=== PATIENT | male | born 1955 | race Caucasian/White ===

== ENCOUNTER → 2016-05-14 | Outpatient (CLI) | payer OTHER ==
--- NOTE | 2016-05-14 16:46 | REP ---
MRI LUMBAR SPINE WITHOUT CONTRAST: HISTORY: Lumbago. Decreased signal intensity on T2-weighted images is present in the lumbar intervertebral discs. The discs are decreased in height. These findings are consistent with disc degeneration. A diffuse disc bulge is present at the L1-2 level. There is minimal compression of the thecal sac. The L1 nerves exit the neural foramina without compression. A diffuse disc bulge with associated osteophyte formation is present at the L2-3 level. There is minimal compression of the thecal sac. There is hypertrophy of the posterior articulating facets. There is compression of the left L2 nerve in the neural foramen. The right L2 nerve exits the neural foramen without compression. A diffuse disc bulge with associated osteophyte formation is present at the L3-4 level. There is minimal compression of the thecal sac. There is hypertrophy of the posterior articulating facets. There is compression of the L3 nerves in the neural foramina. A diffuse disc bulge is present at the L4-5 level. There is minimal compression of the thecal sac. There is hypertrophy of the posterior articulating facets. There is compression of the right L4 nerve in the neural foramen. The left L4 nerve exits the neural foramen without compression. A diffuse disc bulge is present at the L5-S1 level. This abuts the thecal sac. There is hypertrophy of the posterior articulating facets. There is compression of the L5 nerves and the neural foramina. The conus medullaris is normal in appearance terminating at the level of the L1 intervertebral disc. Increased signal intensity on T2-weighted images is present in the endplates of the L2 through L5 vertebral bodies. This represents degenerative change. There is an old compression fracture at the L1 vertebral body with minimal height loss. IMPRESSION: 1. Diffuse disc bulges at the L1-2 and L4-5 levels with minimal thecal sac compression. There is compression of the right L4 nerve in the neural foramen. 2. Diffuse disc bulge with associated osteophyte formation at the L2-3 and L3-4 levels with minimal thecal sac compression. There is compression of the L3 and left L2 nerves in the neural foramina. 3. Diffuse disc bulge at the L5-S1 level. This abuts the thecal sac. There is compression of the L5 nerves in the neural foramina. Signed by Maurizio Cartagena MD 05/14/2016 04:53 P
== END ==
LOC: M RAD 15:29
PROVIDERS: ATTEND Family Medicine
DX: M54.41 Lumbago with sciatica, right side (principal); M51.26 Other intervertebral disc displacement, lumbar region

== ENCOUNTER → 2016-08-25 | Outpatient (REF) | payer OTHER | LOC: M SFHCPLAZ 15:38 | PROVIDERS: ATTEND Family Medicine | DX: T14.8 Other injury of unspecified body region (principal) ==

== ENCOUNTER 2019-02-05 13:16 | Emergency (ER) | payer OTHER ==
[~2019-02-05] VITALS: Ht 200.7 cm; Wt 127.3 kg
[2019-02-05 15:08] LABS: BASO # 0.1 10^3/uL (0.0-0.2); BASO % 0.5 % (0.0-1.0); EOS # 0.1 10^3/uL (0.0-0.5); EOS % 0.7 % (0.0-3.0); HEMATOCRIT 45.1 % (42.0-52.0); HEMOGLOBIN 15.3 g/dl (13.5-17.5); LYMPH # 1.8 10^3/uL (1.5-5.0); LYMPH % 16.6 % (24.0-44.0); MEAN CORPUSCULAR HEMOGLOBIN 28.6 pg (27.0-33.0); MEAN CORPUSCULAR HGB CONC 33.9 g/dl (32.0-36.5); MEAN CORPUSCULAR VOLUME 84.3 fl (80.0-96.0); MONO # 0.9 10^3/uL (0.0-0.8); MONO % 8.3 % (0.0-5.0); NEUTROPHILS # 7.9 10^3/uL (1.5-8.5); NEUTROPHILS % 73.6 % (36.0-66.0); PLATELET COUNT, AUTOMATED 267 10^3/uL (150-450); RED BLOOD COUNT 5.35 10^6/uL (4.30-6.10); WHITE BLOOD COUNT 10.7 10^3/uL (4.0-10.0)
[2019-02-05] MEDS ORDERED: FLOM0.4C39 PO (15:17)
--- NOTE | 2019-02-05 15:17 | REP ---
Two-view chest: 02/05/2019. Indication: Hypertension. Comparison: None. Findings: The lungs are clear. There is no pleural effusion or pneumothorax. The cardiomediastinal silhouette is unremarkable. Impression: Clear lungs. Electronically Signed by Silvano Avila DO 02/05/2019 03:09 P
[2019-02-05 15:35] LABS: CK-MB VALUE MASS < 1.0 NG/ML (<3.6); CPK CREATINE PHOSPHOKINASE 59 U/L (39-308); MB/CK RELATIVE INDEX 1.69 (< OR =4); TROPONIN I < 0.02 NG/ML (< 0.10)
--- NOTE | 2019-02-05 16:39 | ECGEPIP ---
[facility] - ED Test Date: 2019-02-05 Pat Name: DIMPLE STRATTON Department: Room: - Gender: Male [employer] Consultant: CAROLA : 1955 Requested By: DWAIN Marquez PA-C Order Number: [id number] Reading MD: Shanti Mccullough Measurements Intervals [place] Rate: 54 P: 60 TX: 174 QRS: -47 QRSD: 113 T: -46 QT: 429 QTc: 409 Interpretive Statements SINUS BRADYCARDIA WITH SINUS ARRHYTHMIA MARKED LEFT AXIS DEVIATION POSSIBLE SEPTAL MYOCARDIAL INFARCTION, OF INDETERMINATE AGE NO PRIOR Electronically Signed on 02-05-2019 16:39:12 EST by Shanti Mccullough
[2019-02-05 16:56] VITALS: BP 164/92
== END 2019-02-05 16:58 | disposition home or self-care (01) ==
LOC: M ED 13:16
DX: R33.9 Retention of urine, unspecified (principal); R10.30 Lower abdominal pain, unspecified; R03.0 Elevated blood-pressure reading, without diagnosis of hypertension; R00.1 Bradycardia, unspecified; M54.9 Dorsalgia, unspecified; F17.210 Nicotine dependence, cigarettes, uncomplicated

== ENCOUNTER 2019-02-10 20:17 | Emergency (ER) | payer OTHER ==
[~2019-02-10] VITALS: Ht 200.7 cm; Wt 119.1 kg
[~2019-02-10 20:17] MED LIST: FLOM0.4C39 PO
[2019-02-10] MEDS ORDERED: LIDOCAINE 2% 5ML JELLY UROJET TOP ONE (20:45)
[2019-02-10] MEDS ORDERED: HYDR-3713 PO (21:32)
[2019-02-10 21:50] VITALS: BP 175/92
== END 2019-02-10 21:52 | disposition home or self-care (01) ==
LOC: M ED 20:17
DX: R33.9 Retention of urine, unspecified (principal); Z79.899 Other long term (current) drug therapy

== ENCOUNTER → 2019-02-16 | Outpatient (CLI) | payer OTHER ==
[~2019-02-16] MED LIST changes: +HYDR-3713 PO
== END ==
LOC: M LAB 14:32
PROVIDERS: ATTEND Nurse Practitioner Family
DX: Z12.5 Encounter for screening for malignant neoplasm of prostate (principal)

== ENCOUNTER → 2019-02-22 | Outpatient (REF) | payer OTHER | LOC: M SMT 17:12 | PROVIDERS: ATTEND Nurse Practitioner Family | DX: R97.20 Elevated prostate specific antigen [PSA] (principal) ==

== ENCOUNTER → 2019-04-08 | Outpatient (CLI) | payer OTHER ==
[2019-04-11 00:07] LABS: PSA TOTAL 69.5 ng/mL (0.0-4.0)
== END ==
LOC: M LAB 12:39
PROVIDERS: ATTEND Nurse Practitioner Family
DX: Z12.5 Encounter for screening for malignant neoplasm of prostate (principal)

== ENCOUNTER → 2019-04-26 | Outpatient (CLI) | payer OTHER ==
[~2019-04-26] MED LIST changes: +PROHANCE 279.3MG/ML 15ML VIAL (A9576) As Ordered ONE; +PROHANCE 279.3MG/ML 5ML VIAL (A9576) As Ordered ONE
--- NOTE | 2019-04-26 13:46 | REP ---
MULTI PARAMETRIC PROSTATE MRI WITHOUT AND WITH IV GADOLINIUM: HISTORY: Elevated PSA. Urinary retention. Urinary tract infection COMPARISONS: No comparison imaging. TECHNIQUE: Using a phased array surface coil, small field of view imaging was acquired using T2-weighted scans in the axial, coronal, and sagittal imaging planes. Small field of view diffusion-weighted sequences are acquired. Small field of view axial T1-weighted scans are acquired dynamically before and after the intravenous administration of 20 mL of ProHance. Imaging is reviewed on the [employer] computer aided detection system. PROSTATE MRI FINDINGS: There is no evidence of skeletal metastatic disease. There are two suspicious lymph nodes, one in the internal iliac chain measuring 10 x 14 mm. The other is in the external iliac chain on the right measuring 19 x 14 mm. There is evidence of extraprostatic malignancy in the para-prostatic soft tissues on the left where there is a 17 x 12 x 21 mm extra prostatic low T2 signal intensity lesion. There is also evidence of extraprostatic involvement of the seminal vesicles bilaterally. This is a little more prominent on the left than the right. The fat plane between the posterior margin of the prostate and the rectum is effaced to the left of midline. Prostate dimensions are 5.8 x 5.2 x 4.8 cm. Calculated volume is 74.01 mL. There is a large infiltrative low T2 signal intensity enhancing mass involving the left half of the prostate which extends beyond the lateral capsular margin and bulges the posterior capsular margin. On diffusion weighted scans, it shows intermediate areas of restricted diffusion. There is a type 3 enhancement curve. Clinically significant cancer is highly likely here. This measures 19.9 mL and estimated volume with diameters of 4.2 x 1.7 x 3.8 cm. It is seen in a large area of the left side of the gland including the anterolateral peripheral zone at the left base, the posterior peripheral zone at the left base, the left base posterior transition zone, and left mid transition zone, and the left mid posterior peripheral zone. There is a left lateral extraprostatic suspicious nodule with somewhat spiculated margins, discrete homogeneous low signal intensity on T2-weighted scans with focal areas of reduced ADC and a type 3 enhancement curve. Significant disease is highly likely to be present here as well. 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 Two regions of interest are drawn and submitted to the [employer] system. Electronically Signed by Len Russell MD 04/26/2019 04:57 P
== END ==
LOC: M RAD 10:34
PROVIDERS: ATTEND Specialist
DX: R97.20 Elevated prostate specific antigen [PSA] (principal); N39.0 Urinary tract infection, site not specified
CPT/HCPCS: 72197; A9576

== ENCOUNTER → 2019-05-01 | Outpatient (CLI) | payer OTHER ==
[~2019-05-01] MED LIST changes: -PROHANCE 279.3MG/ML 15ML VIAL (A9576) As Ordered ONE; -PROHANCE 279.3MG/ML 5ML VIAL (A9576) As Ordered ONE
--- NOTE | 2019-05-01 15:01 | REPPI ---
TRANSRECTAL ULTRASOUND WITH GUIDANCE FOR PROSTATE BIOPSY: Transrectal ultrasound guidance was provided to Dr. Lopez who performed MR ultrasound fusion-guided biopsy of the prostate. Electronically Signed by Teodoro Fernandez MD 05/02/2019 01:48 P
== END ==
LOC: M SMT PRO 09:39
PROVIDERS: ATTEND Urology
DX: C61 Malignant neoplasm of prostate (principal)
CPT/HCPCS: 76942; G0416

== ENCOUNTER → 2019-05-10 | Outpatient (CLI) | payer OTHER ==
--- NOTE | 2019-05-10 16:55 | REP ---
WHOLE BODY BONE SCAN: Following the intravenous administration of 21.7 mCi of technetium 99m MDP, the patient's whole body is imaged in the anterior and posterior projections. Additional oblique and lateral views are obtained. There is a focal area of increased uptake in the left first rib. A small focus of increased uptake is seen in the posterior right fourth rib and posterior right ninth rib. There is a focus of increased uptake in the lateral aspect of the right scapula. All of these are compatible with metastatic foci. There is mild arthritic uptake at the sternoclavicular joints and shoulders bilaterally. There is also mild arthritic uptake at the right hip and left knee. Renal and bladder activity are seen. IMPRESSION: Foci of increased uptake compatible with metastatic lesions, in the left first rib, posterior right fourth and ninth ribs and right scapula. Electronically Signed by Teodoro Fernandez MD 05/11/2019 03:56 P
== END ==
LOC: M RAD 09:59
PROVIDERS: ATTEND Urology
DX: C61 Malignant neoplasm of prostate (principal)
CPT/HCPCS: 78306; A9503

== ENCOUNTER 2019-05-13 19:02 | Emergency (ER) | payer OTHER ==
[2019-05-13] MEDS ORDERED: EPINEPHrine 1MG/10ML SYRINGE 1.5IN ONE (19:03)
== END 2019-05-13 21:23 | disposition expired ==
LOC: M ED 19:02 → EDBD 19:02 → M ED 21:23
DX: I46.9 Cardiac arrest, cause unspecified (principal)

== ENCOUNTER → 2019-05-13 | Outpatient (REF) | LOC: M LAB 21:09 ==